=== PATIENT | male | born 1965 | race Caucasian/White ===

== ENCOUNTER → 2022-08-01 10:41 | Outpatient (BNVA) | payer BC, SELFPAY | PROVIDERS: Family Provider Internal Medicine; PCP Internal Medicine; Visit Provider Internal Medicine Rheumatology | DX: Z79.899 Other long term (current) drug therapy (principal); M19.90 Unspecified osteoarthritis, unspecified site | CPT/HCPCS: 36415; 72040; 72170; 73130; 73562; 85651; 86140 ==

== ENCOUNTER 2022-09-23 16:32 | Outpatient (CLI) | payer BC, SELFPAY ==
--- NOTE | 2022-09-23 17:00 | CT_ITS ---
WS: [id number] CT LEFT HAND, NONCONTRAST. HISTORY: M25.50 - Pain in unspecified joint, cyst first digit. Chronic pain. Technique: All CT scans at [facility] use at least one of these dose optimization techniques: automated exposure control; mA and/or kV adjustment per patient size (includes targeted exams where dose is matched to clinical indication); or iterative reconstruction. DLP: 138.02 mGy.cm COMPARISON: RIGHT hand radiograph 08/01/2022 No acute fractures or dislocations. Normal alignment at the metacarpal phalangeal and phalangeal join ts. Mild joint space narrowing and hypertrophic osteophytes from osteoarthritis. There is more advanced joint space narrowing involving the first CMC joint with subchondral cysts on both sides of the joint space. There is a large subchondral cyst in the proximal first metacarpal. Th ere is partial subluxation of the first metacarpal at the first CMC joint. Osteophyte formation from the trapezium extends distally between the proximal first and second metacarpals. Otherwise normal al ignment at the carpometacarpal joint space. No widening of the scapholunate. No soft tissue masses ar e identified. CT/CT hand LT wo con* [id number] IMPRESSION: 1. Advanced osteoarthritis at the first carpometacarpal joint with partial sub luxation. 2. Subchondral cysts on both sides of the first carpometacarpal joint. 3. Osteophyte from the trapezium extends inferiorly between the first and seco nd proximal metacarpals.
== END 2022-09-23 16:33 | disposition home or self-care (01) ==
PROVIDERS: Family Provider Internal Medicine; PCP Internal Medicine; Visit Provider Internal Medicine Rheumatology
DX: M19.042 Primary osteoarthritis, left hand (principal); M85.642 Other cyst of bone, left hand; G89.29 Other chronic pain; M25.742 Osteophyte, left hand
CPT/HCPCS: 73200

== ENCOUNTER 2023-02-28 13:25 | Outpatient (CLI) | payer BC, SELFPAY ==
[2023-02-28 13:52] LABS: Basophils % 0.4 %; Eosinophils # 0.2 10^3/uL (0.0-0.8); Eosinophils % 2.9 %; Hematocrit 41.1 % (37-53); Lymphocytes # 1.3 10^3/uL (0.8-4.8); Lymphocytes % 19.3 %; Mean Corpuscular HGB Conc 33.3 g/dL (30-55); Mean Corpuscular Hemoglobin 29.4 pg (27-33); Mean Corpuscular Volume 88.2 fl (82-101); Mean Platelet Volume 9.3 fL (7.4-10.4); Monocytes # 0.6 10^3/uL (0.2-0.9); Monocytes % 8.1 %; Neutrophils # 4.71 10^3/uL (1.8-7.7); Nucleated Red Blood Cells % 0 %; Platelet Count 239 10^3/cmm (157-399); Red Blood Count 4.66 10^6/uL (3.85-5.65); Red Cell Distribution Width 13.1 % (12.1-15.1); White Blood Count 6.83 10^3/uL (3.29-11.43)
[2023-02-28 14:12] LABS: Alanine Aminotransferase 31 U/L (0-41); Albumin Level 4.5 g/dL (3.5-5.2); Alkaline Phosphatase 112 U/L (40-130); Aspartate Amino Transferase 22 U/L (0-40); C Reactive Protein 3.5 mg/L (0.0-4.9); Globulin 3.1 g/dL (1.3-4.6); Glomerular Filtration Rate 99.6 mL/min (90-130); Total Bilirubin 0.5 mg/dL (0.15-1.2); Total Protein 7.6 g/dL (6.6-8.7)
== END 2023-02-28 13:26 | disposition home or self-care (01) ==
PROVIDERS: PCP Internal Medicine; Visit Provider Internal Medicine Rheumatology
DX: M25.50 Pain in unspecified joint (principal)
CPT/HCPCS: 36415; 80076; 82565; 85025; 86140

== ENCOUNTER 2023-04-18 14:57 | Outpatient (CLI) | payer BC, SELFPAY ==
[2023-04-18 15:23] LABS: Basophils % 0.5 %; Eosinophils # 0.2 10^3/uL (0.0-0.8); Eosinophils % 2.4 %; Hematocrit 40.4 % (37-53); Lymphocytes # 1.3 10^3/uL (0.8-4.8); Lymphocytes % 20.4 %; Mean Corpuscular HGB Conc 32.9 g/dL (30-55); Mean Corpuscular Hemoglobin 29.4 pg (27-33); Mean Corpuscular Volume 89.4 fl (82-101); Mean Platelet Volume 9.2 fL (7.4-10.4); Monocytes # 0.5 10^3/uL (0.2-0.9); Monocytes % 8.1 %; Neutrophils # 4.21 10^3/uL (1.8-7.7); Neutrophils % 68.3 %; Nucleated Red Blood Cells % 0 %; Platelet Count 217 10^3/cmm (157-399); Red Blood Count 4.52 10^6/uL (3.85-5.65); Red Cell Distribution Width 13.5 % (12.1-15.1); White Blood Count 6.17 10^3/uL (3.29-11.43)
[2023-04-18 15:41] LABS: Alanine Aminotransferase 42 U/L (0-41); Albumin Level 4.2 g/dL (3.5-5.2); Alkaline Phosphatase 104 U/L (40-130); Aspartate Amino Transferase 28 U/L (0-40); C Reactive Protein 5.7 mg/L (0.0-4.9); Globulin 3.1 g/dL (1.3-4.6); Total Bilirubin 0.5 mg/dL (0.15-1.2); Total Protein 7.3 g/dL (6.6-8.7)
== END 2023-04-18 14:58 | disposition home or self-care (01) ==
LOC: LAB 14:59
PROVIDERS: PCP Internal Medicine; Visit Provider Internal Medicine Rheumatology
DX: M25.50 Pain in unspecified joint (principal); Z79.899 Other long term (current) drug therapy
CPT/HCPCS: 36415; 80076; 82565; 85025; 86140

== ENCOUNTER → 2023-11-18 15:37 | Outpatient (BNVA) | payer BC, SELFPAY | PROVIDERS: PCP Internal Medicine; Visit Provider Internal Medicine Rheumatology | DX: M19.90 Unspecified osteoarthritis, unspecified site (principal); Z79.899 Other long term (current) drug therapy | CPT/HCPCS: 36415; 80076; 82565; 85025; 85651; 86140 ==

== ENCOUNTER 2024-03-01 15:16 | Outpatient (CLI) | payer BC, SELFPAY ==
[2024-03-01 15:39] LABS: Basophils % 0.7 %; Eosinophils # 0.3 10^3/uL (0.0-0.8); Eosinophils % 4.2 %; Hematocrit 42.1 % (37-53); Lymphocytes # 1.2 10^3/uL (0.8-4.8); Lymphocytes % 20.7 %; Mean Corpuscular HGB Conc 33.3 g/dL (30-55); Mean Corpuscular Hemoglobin 30.2 pg (27-33); Mean Corpuscular Volume 90.9 fl (82-101); Mean Platelet Volume 9.2 fL (7.4-10.4); Monocytes # 0.6 10^3/uL (0.2-0.9); Monocytes % 9.2 %; Neutrophils # 3.91 10^3/uL (1.8-7.7); Nucleated Red Blood Cells % 0 %; Platelet Count 217 10^3/cmm (157-399); Red Blood Count 4.63 10^6/uL (3.85-5.65); Red Cell Distribution Width 13.2 % (12.1-15.1)
[2024-03-01 15:46] LABS: Erythrocyte Sedimentation Rate 18 mm/hr (0-10)
[2024-03-01 16:16] LABS: Alanine Aminotransferase 27 U/L (0-41); Albumin Level 4.3 g/dL (3.5-5.2); Alkaline Phosphatase 117 U/L (40-130); Aspartate Amino Transferase 19 U/L (0-40); Globulin 2.2 g/dL (1.3-4.6); Glomerular Filtration Rate 115.8 mL/min (90-130); Total Bilirubin 0.6 mg/dL (0.15-1.2); Total Protein 6.5 g/dL (6.6-8.7)
== END 2024-03-01 15:17 | disposition home or self-care (01) ==
PROVIDERS: PCP Internal Medicine; Visit Provider Internal Medicine Rheumatology
DX: M19.90 Unspecified osteoarthritis, unspecified site (principal); Z79.899 Other long term (current) drug therapy
CPT/HCPCS: 36415; 80076; 82565; 85025; 85651; 86140

== ENCOUNTER 2024-06-29 08:34 | Outpatient (CLI) | payer BC, SELFPAY ==
[2024-06-29 08:58] LABS: Basophils % 0.6 %; Eosinophils # 0.3 10^3/uL (0.0-0.8); Eosinophils % 4.2 %; Hematocrit 41.5 % (37-53); Lymphocytes # 1.2 10^3/uL (0.8-4.8); Lymphocytes % 17.1 %; Mean Corpuscular Volume 90.6 fl (82-101); Mean Platelet Volume 8.7 fL (7.4-10.4); Monocytes # 0.8 10^3/uL (0.2-0.9); Monocytes % 11.7 %; Neutrophils # 4.58 10^3/uL (1.8-7.7); Neutrophils % 66.3 %; Nucleated Red Blood Cells % 0 %; Platelet Count 209 10^3/cmm (157-399); Red Blood Count 4.58 10^6/uL (3.85-5.65); Red Cell Distribution Width 13.6 % (12.1-15.1); White Blood Count 6.91 10^3/uL (3.29-11.43)
[2024-06-29 09:04] LABS: Erythrocyte Sedimentation Rate 9 mm/hr (0-10)
[2024-06-29 09:15] LABS: Alanine Aminotransferase 20 U/L (0-41); Albumin Level 3.9 g/dL (3.5-5.2); Alkaline Phosphatase 122 U/L (40-130); Aspartate Amino Transferase 16 U/L (0-40); C Reactive Protein 8.5 mg/L (0.0-4.9); Globulin 2.7 g/dL (1.3-4.6); Glomerular Filtration Rate 138.4 mL/min (90-130); Total Bilirubin 0.6 mg/dL (0.15-1.2); Total Protein 6.6 g/dL (6.6-8.7)
== END 2024-06-29 08:35 | disposition home or self-care (01) ==
PROVIDERS: Visit Provider Internal Medicine Rheumatology
DX: M06.041 Rheumatoid arthritis without rheumatoid factor, right hand (principal); M06.042 Rheumatoid arthritis without rheumatoid factor, left hand; Z79.899 Other long term (current) drug therapy
CPT/HCPCS: 36415; 80076; 82565; 85025; 85651; 86140

== ENCOUNTER → 2024-06-30 15:56 | Outpatient (BNVA) | payer BC, SELFPAY | PROVIDERS: Visit Provider Internal Medicine Rheumatology | DX: Z79.899 Other long term (current) drug therapy (principal); M06.041 Rheumatoid arthritis without rheumatoid factor, right hand; M06.042 Rheumatoid arthritis without rheumatoid factor, left hand; N23 Unspecified renal colic | CPT/HCPCS: 36415; 72100; 82085; 82550 ==

== ENCOUNTER 2024-07-09 13:32 | Outpatient (CLI) | payer BC, SELFPAY ==
--- NOTE | 2024-07-09 17:15 | USR_ITS ---
PROCEDURE INFORMATION: Exam: US Retroperitoneal, Complete, Kidneys and Bladder Exam date and time: 07/09/2024 1:52 PM Age: 58 years old Clinical indication: Screening exam; Other: Other alf (current) drug therapy; Additional info: Z79.899 - other alf (current) drug therapy TECHNIQUE: Imaging protocol: Real-time ultrasound of the retroperitoneum with image documentation. Complete exam focused on the bilateral kidneys and urinary bladder. COMPARISON: CR XR lumbar spine 2-3V* [id number] 06/30/2024 4:03 PM FINDINGS: Right kidney: Normal. No stones. No hydronephrosis. Left kidney: Normal. No stones. No hydronephrosis. Urinary bladder: Unremarkable. US/US renal BI* [id number] IMPRESSION: Unremarkable kidneys and bladder.
== END 2024-07-09 13:33 | disposition home or self-care (01) ==
PROVIDERS: Visit Provider Internal Medicine Rheumatology
DX: Z79.899 Other long term (current) drug therapy (principal); M06.041 Rheumatoid arthritis without rheumatoid factor, right hand; M06.042 Rheumatoid arthritis without rheumatoid factor, left hand
CPT/HCPCS: 76770

== ENCOUNTER 2024-07-20 05:00 | Outpatient (RCR) | payer BC, SELFPAY | END 2024-08-18 23:59 | disposition home or self-care (01) | LOC: SPT 05:00 | PROVIDERS: Visit Provider Orthopaedic Surgery | DX: M54.9 Dorsalgia, unspecified (principal); M54.2 Cervicalgia; G89.29 Other chronic pain | CPT/HCPCS: 97110; 97161 ==

== ENCOUNTER 2024-08-19 06:30 | Outpatient (RCR) | payer BC, SELFPAY | END 2024-09-18 23:59 | disposition home or self-care (01) | LOC: SPT 06:30 | PROVIDERS: Visit Provider Orthopaedic Surgery | DX: M54.9 Dorsalgia, unspecified (principal); M54.2 Cervicalgia; G89.29 Other chronic pain | CPT/HCPCS: 97110 ==

== ENCOUNTER → 2024-10-13 12:41 | Outpatient (BNVA) | payer BC, SELFPAY | PROVIDERS: Visit Provider Internal Medicine Rheumatology | DX: Z79.899 Other long term (current) drug therapy (principal) | CPT/HCPCS: 36415; 80076; 82565; 85025; 85651; 86140 ==

== ENCOUNTER 2024-10-15 07:34 | Outpatient (CLI) | payer BC, SELFPAY ==
--- NOTE | 2024-10-15 07:37 | MR_ITS ---
WS: [id number] MRI LUMBAR SPINE NONCONTRAST TECHNIQUE: Sagittal T1, T2 and STIR imaging. Axial T1 and T2 imaging. CLINICAL INFORMATION: DISC DZ W/MYELOPATHY,LUMBAR COMPARISON: None. FINDINGS: Mild lumbar curve. No acute compression. Counting is performed from the craniocervical junction. L5 is sacralized. Recommend plain film correlation prior to surgical intervention. L1-L2: Mild annular bulging. Moderate central canal stenosis with impingement on the subarticular recess bilaterally. Moderate facet arthropathy. Mild LEFT greater than RIGHT foraminal narrowing. L2-L3: Mild annular bulging. Mild central canal stenosis. Impingement of the subarticular recess bilaterally. Mild facet arthropathy. Foramen are patent. L3-L4: Mild annular bulging. Moderate central canal stenosis. Impingement on the traversing L4 nerve roots. Moderate facet arthropathy. Mild LEFT greater than RIGHT foraminal narrowing. L4-L5: Disc osteophyte complex. Narrowing of the LEFT subarticular recess. Moderate facet arthropathy. Mild LEFT greater than RIGHT foraminal narrowing. L5-S1: L5 is sacralized. Mild facet arthropathy. Spinal canal and foramen are patent. Visualized pelvic bony structures: Normal. Paravertebral soft tissues: Normal. Adrenal glands appear normal. Small disc protrusions in the cervical spine on the surveyor helper rod imaging at C5-C6 and C6-C7. MR/MR lumbar spine wo con* [id number] IMPRESSION: 1. Counting is performed from the craniocervical junction. L5 is sacralized. Recommend plain film correlation prior to surgical intervention. 2. Moderate central canal stenosis L1-2 and L3-4 with impingement subarticular recess bilaterally. 3. Mild central canal stenosis L2-3 impinges the subarticular recess. 4. Narrowing of the LEFT L4-5 subarticular recess with disc osteophyte complex . 5. Mild bony foraminal narrowing described above.
== END 2024-10-15 07:35 | disposition home or self-care (01) ==
LOC: RAD 07:34
PROVIDERS: PCP Electrodiagnostic Medicine; Visit Provider Electrodiagnostic Medicine
DX: M51.06 Intervertebral disc disorders with myelopathy, lumbar region (principal); M48.061 Spinal stenosis, lumbar region without neurogenic claudication; M47.26 Other spondylosis with radiculopathy, lumbar region; M50.222 Other cervical disc displacement at C5-C6 level; M50.223 Other cervical disc displacement at C6-C7 level
CPT/HCPCS: 72148

== ENCOUNTER 2025-01-18 15:06 | Outpatient (CLI) | payer BC, SELFPAY ==
[2025-01-18 16:37] LABS: Hematocrit 38.0 % (37-53); Hemoglobin 12.60 g/dL (11.27-16.99); Mean Corpuscular HGB Conc 33.2 g/dL (30-55); Mean Corpuscular Hemoglobin 29.9 pg (27-33); Mean Corpuscular Volume 90.0 fl (82-101); Nucleated Red Blood Cells % 0 %; Platelet Count 192 10^3/cmm (157-399); Red Blood Count 4.22 10^6/uL (3.85-5.65); White Blood Count 4.71 10^3/uL (3.29-11.43)
[2025-01-18 17:32] LABS: Alanine Aminotransferase 30 U/L (0-41); Albumin Level 4.3 g/dL (3.5-5.2); Alkaline Phosphatase 130 U/L (40-130); Aspartate Amino Transferase 25 U/L (0-40); Globulin 3.0 g/dL (1.3-4.6); Total Protein 7.3 g/dL (6.6-8.7)
== END 2025-01-18 15:07 | disposition home or self-care (01) ==
PROVIDERS: PCP Electrodiagnostic Medicine; Visit Provider Internal Medicine Rheumatology
DX: Z79.899 Other long term (current) drug therapy (principal)
CPT/HCPCS: 36415; 80076; 82565; 85025; 85651; 86140

== ENCOUNTER 2025-03-29 14:44 | Outpatient (CLI) | payer BC, SELFPAY ==
[2025-03-29 15:12] LABS: Hematocrit 39.4 % (37-53); Hemoglobin 13.00 g/dL (11.27-16.99); Mean Corpuscular HGB Conc 33.0 g/dL (30-55); Mean Corpuscular Hemoglobin 29.3 pg (27-33); Mean Corpuscular Volume 88.9 fl (82-101); Nucleated Red Blood Cells % 0 %; Platelet Count 222 10^3/cmm (157-399); Red Blood Count 4.43 10^6/uL (3.85-5.65); White Blood Count 6.49 10^3/uL (3.29-11.43)
[2025-03-29 15:41] LABS: Alanine Aminotransferase 22 U/L (0-41); Albumin Level 4.3 g/dL (3.5-5.2); Alkaline Phosphatase 129 U/L (40-130); Aspartate Amino Transferase 23 U/L (0-40); Globulin 3.3 g/dL (1.3-4.6); Total Protein 7.6 g/dL (6.6-8.7)
== END 2025-03-29 14:45 | disposition home or self-care (01) ==
PROVIDERS: PCP Electrodiagnostic Medicine; Visit Provider Internal Medicine Rheumatology
DX: Z79.899 Other long term (current) drug therapy (principal)
CPT/HCPCS: 36415; 80076; 82565; 85025; 85651; 86140